=== PATIENT | female | born 1995 | race Two or more races ===

== ENCOUNTER 2022-08-01 13:42 | Inpatient (IN) | payer OTHER ==
[~2022-08-01] VITALS: Ht 154.9 cm; Wt 47.6 kg
--- NOTE | 2022-08-01 13:58 | NUR ---
SE RECIBE PACIENTE ALERTA, ORIENTADA X 3 ESFERAS REFIERE DOLOR ABDOMINAL, Y DEL CUERPO DESDE MAYA SE ESTIMAN S/V SE UBICA EN AREA DE OSERVACION.
--- NOTE | 2022-08-01 15:20 | NUR ---
SE LE ORIENTA A PTE SOBRE TRATAMIENTO A SEGUIR, ROSALBA REFIERE ENTENDER. SE LE COLECTA MUESTRAS, SE CANALIZA Y SE ADMINISTRA MEDICAMENTO TANESHA ORDEN MEDICA UTILIZANDO MEDIDAS ASEPTICAS. PENDIENTE U/A Y CT PO
== END 2022-08-06 22:09 | disposition home or self-care (01) | DRG 392 ==
LOC: ER 13:42 → MEDJ 23:04
PROVIDERS: ADMIT Internal Medicine; ATTEND Internal Medicine
PROC: BW21YZZ Computerized Tomography (CT Scan) of Abdomen and Pelvis using Other Contrast (ICD-10-PCS; 2022-08-01)
PROC: 0DB68ZX Excision of Stomach, Via Natural or Artificial Opening Endoscopic, Diagnostic (ICD-10-PCS; principal; 2022-08-06)
DX: K52.89 Other specified noninfective gastroenteritis and colitis (principal); A54.02 Gonococcal vulvovaginitis, unspecified; A54.9 Gonococcal infection, unspecified; K29.60 Other gastritis without bleeding; E86.0 Dehydration; Z20.822 Contact with and (suspected) exposure to COVID-19

== ENCOUNTER 2023-02-09 08:35 | Emergency (ER) | payer OTHER ==
[~2023-02-09] VITALS: Ht 154.9 cm; Wt 47.6 kg
== END 2023-02-09 12:31 | disposition home or self-care (01) ==
LOC: ER 08:35
DX: M79.602 Pain in left arm (principal); Z91.013 Allergy to seafood